=== PATIENT | female | born 1965 | race Caucasian/White ===

== ENCOUNTER 2017-12-28 18:21 | Inpatient (IN) | payer BC, OTHER ==
[~2017-12-28] VITALS: Ht 160 cm; Wt 64.2 kg
[2017-12-28] MEDS ORDERED: SODIUM CHLORIDE 0.9% 1000ML 1,000 ML IV ONE (19:00)
[2017-12-28] MEDS ORDERED: ACETAMINOPHEN IV 100 ML IV ONE (19:00)
[2017-12-28] MEDS ORDERED: OPTIRAY 320 IV PRN (19:15)
[2017-12-28 19:23] LABS: BASO % 0.1 %; BASO ABS # 0.01 K/uL (0-0.2); EOS % 5.1 %; EOS ABS # 0.51 K/uL (0-0.5); HEMATOCRIT 37.7 % (37-47); IG# 0.03 K/uL (0.00-0.02); LYMPH % 8.5 %; LYMPH ABS # 0.85 K/uL (1.2-3.4); MEAN CELL VOLUME 88.9 fL (80-100); MEAN CORPUSCULAR HEMOGLOBIN 30.7 pg (25-34); MEAN CORPUSCULAR HGB CONC 34.5 g/dl (32-36); MEAN PLATELET VOLUME 11.4 fL (7.4-10.4); MONO % 4.7 %; MONO ABS # 0.47 K/uL (0.11-0.59); NEUT % 81.3 %; NEUT ABS # 8.13 K/uL (1.4-6.5); PLATELET COUNT 208 K/uL (130-400); RED CELL DISTRIBUTION WIDTH SD 41.6 fL (36.4-46.3)
--- NOTE | 2017-12-28 19:28 | DIAGNOSTIC IMAGING REPORT ---
CHEST ONE VIEW PORTABLE CLINICAL HISTORY: Shortness of breath. Rib pain. COMPARISON STUDY: No previous studies for comparison. FINDINGS: Lung volumes are mildly diminished. There is mild left lower lung opacity. There may be a trace left pleural effusion. There is no pneumothorax or evidence for pulmonary edema. Cardiomediastinal silhouette is normal. IMPRESSION: 1. Mild left lower lung opacity which may reflect consolidation, atelectasis or a pulmonary infarct. Radiographic follow-up is recommended to ensure resolution. 2. Suspected trace left pleural effusion. 3. Diminished lung volumes. Electronically signed by: Juan Jose Wisdom M.D. 12/28/2017 7:27 PM Dictated Date/Time: 12/28/2017 7:25 PM
[2017-12-28 19:49] LABS: BLOOD UREA NITROGEN 20 mg/dl (7-18); CALCIUM 9.1 mg/dl (8.5-10.1); CARBON DIOXIDE 27 mmol/L (21-32); CREATININE 1.06 mg/dl (0.60-1.20); GLUCOSE 94 mg/dl (70-99); POTASSIUM 3.9 mmol/L (3.5-5.1); SODIUM 137 mmol/L (136-145)
[2017-12-28] MEDS ORDERED: ONDANSETRON INJ 2 MG/ML 2 ML VIAL IV STA (19:53)
[2017-12-28] MEDS ORDERED: MoRPHine SULFATE 4 MG/ML 1 ML CARP\\VIAL IV STA ×2 (19:53→20:55)
--- NOTE | 2017-12-28 20:33 | DIAGNOSTIC IMAGING REPORT ---
CT ANGIOGRAPHY OF THE CHEST, PULMONARY EMBOLUS PROTOCOL CLINICAL HISTORY: Severe shortness of breath. Left rib pain. COMPARISON STUDY: Chest radiograph performed earlier today. TECHNIQUE: Following IV administration of 113 mL of Optiray-320, helical axial images of the chest were obtained utilizing the pulmonary embolus protocol. Maximal intensity projections and sagittal and coronal reformats were viewed on an independent 3D workstation. IV contrast was administered without complication. A dose lowering technique was utilized adhering to the principles of ALARA. CT DOSE: 214.45 mGy.cm FINDINGS: No pulmonary emboli are identified although the segmental and subsegmental pulmonary arteries within the lower lobes are suboptimally assessed due to respiratory motion artifact. There is a small to moderate size focus of consolidation within the left lower lobe with minimal consolidation within the lingula and minimal tree-in-bud opacities within the right upper lobe. There is no cavitation. No pneumothorax or pleural effusion is noted. Central airways are patent. Size of the heart is normal. There is no thoracic aortic dissection. No pericardial effusion is present. There are several mildly enlarged prevascular lymph nodes which measure up to 1 cm in short axis diameter. Mild left hilar lymphadenopathy is noted. A left hilar node shown on image 187 of 296 measures 1.3 cm in short extremity. Bony thorax is unremarkable as is the upper abdomen. IMPRESSION: 1. No pulmonary emboli identified although segmental and subsegmental pulmonary arteries within the lower lobes suboptimally assessed due to respiratory motion artifact. 2. Zkqbr-gd-hlzcrqut focus of consolidation within the left lower lobe with minimal consolidation within the lingula and tree-in-bud opacity within the right upper lobe. The findings favor pneumonia. No cavitation. No pleural effusion. A follow-up chest CT in one month to ensure resolution is recommended. 3. Mild mediastinal and left hilar lymphadenopathy which is likely reactive. This can be assessed on subsequent CT to ensure resolution. Electronically signed by: Juan Jose Wisdom M.D. 12/28/2017 8:32 PM Dictated Date/Time: 12/28/2017 8:23 PM
[2017-12-28] MEDS ORDERED: PIPERACILLIN/TAZOBACTAM 4.5 GM/100ML D5W IV STA (20:55)
[2017-12-28] MEDS ORDERED: LEVAQUIN 750MG / 150ML D5W IV ONE (21:00)
[2017-12-28] MEDS ORDERED: ONDANSETRON INJ 2 MG/ML 2 ML VIAL IV PRN (21:15)
[2017-12-28] MEDS ORDERED: RIBO1TAB4 PO (21:22)
[2017-12-28] MEDS ORDERED: ESTR10TA PV (21:22)
[2017-12-28] MEDS ORDERED: PROB1TAB16 PO (21:22)
[2017-12-28] MEDS ORDERED: SUMA100T16 PO (21:22)
[2017-12-28] MEDS ORDERED: TRAM-10 PO (21:22)
[2017-12-28] MEDS ORDERED: GLC/500 PO (21:22)
[2017-12-28] MEDS ORDERED: BACL10TA PO (21:22)
[2017-12-28] MEDS ORDERED: LEVO112T4 PO (21:22)
[2017-12-28] MEDS ORDERED: TRAZ100T29 PO (21:22)
[2017-12-28] MEDS ORDERED: MAGN1CAP2 PO (21:22)
[2017-12-28] MEDS ORDERED: CLB/200 PO (21:22)
[2017-12-28] MEDS ORDERED: VERA120C2 PO (21:22)
[2017-12-28] MEDS ORDERED: CYM/30 PO (21:22)
[2017-12-28] MEDS ORDERED: MULT-506 PO (21:22)
[2017-12-28] MEDS ORDERED: MoRPHine SULFATE 2 MG/ML CARP IV PRN (21:30)
--- NOTE | 2017-12-28 21:37 | History and Physical ---
History & Physical Date & Time of Service: Dec 28, 2017 at 21:23 Chief Complaint: SOB Primary Care Physician: Reji Ge M.D. History of Present Illness Source: patient, family She is a 52-year-old female significant past medical history of fibromyalgia, ankylosing spondylitis, echo hypothyroidism, hypoglycemia and also a postconcussion syndrome and apparently has been complaining of left-sided chest pain with shortness of breath since this morning. She has had cough before for the last few days without any other associated symptoms. She denies to any fever or chills but feels cold. No abdominal pain nausea and/or vomiting. And she does not have any problem with urine and her bowel habit. She was noted to be hemodynamically stable in ER and a CT scan of the chest did show pneumonia involving the left lower lobe and no evidence of pulmonary embolism. She was started with intravenous Zosyn and Levaquin and was admitted to medical floor. Past Medical/Surgical History Medical Problems: (1) CAP (community acquired pneumonia) Past medical history Fibromyalgia Ankylosing spondylitis Tension headache with cervicalgia Acquired hypothyroidism Postconcussion syndrome Blepharospasm Past surgical history Hysterectomy Shoulder arthroscopy Tonsillectomy as a child Repair of nasal septum Social History Smoking Status: Never Smoker Smokeless Tobacco Use: No Alcohol Use: none Drug Use: none Marital Status: Housing status: lives with significant other Immunizations History of Influenza Vaccine: Yes History of Tetanus Vaccine?: Yes History of Pneumococcal: Yes History of Hepatitis B Vaccine: WITHIN PAST 10 YEARS Allergies Coded Allergies: Codeine (Verified Allergy, Unknown, 06/20/09) Tetracycline (Verified Allergy, Unknown, 06/20/09) Home Medications Scheduled Baclofen (Lioresal), 10 MG PO TID Celecoxib (CeleBREX), 200 MG PO DAILY Duloxetine HCl (Cymbalta), 30 MG PO DAILY Estradiol Vaginal (Vagifem), 1 TAB PV 2XWK Levothyroxine Sodium (Levothyroxine Sodium), 112 MCG PO DAILY Magnesium Oxide (Mg Supplement (Magnesium), 400 MG PO DAILY Metformin Hcl (Glucophage), 500 MG PO BIDM Multivitamin (Multivitamin), 1 TAB PO DAILY Probiotic Product (Probiotic), 1 TAB PO DAILY Riboflavin (Riboflavin), 400 MG PO DAILY Trazodone Hcl (Trazodone), 200 MG PO HS Verapamil Hcl (Verapamil Hcl Er), 120 MG PO DAILY Scheduled PRN Sumatriptan Succinate (Imitrex), 100 MG PO UD PRN for Migraine Tramadol (Ultram), 50-100 MG PO DAILY PRN for Pain Review of Systems Constitutional: + problem reported (cHILLS) Respiratory: + cough, + shortness of breath, + problem reported (Chest pain with Breathing) Abdomen: + nausea Musculoskeletal: + joint pain, + muscle pain Neurologic: + problem reported (Post Concussion syndrome) Physical Exam Vital Signs Date Time Temp Pulse Resp B/P (MAP) Pulse Ox O2 Delivery O2 Flow Rate FiO2 12/28/17 20:36 93 24 98 Nasal Cannula 2.0 12/28/17 20:32 115/93 12/28/17 20:01 125/88 12/28/17 19:40 83 22 100 Nasal Cannula 2.0 12/28/17 19:31 131/85 12/28/17 19:13 100 Nasal Cannula 2.0 12/28/17 19:10 91 34 100 Nasal Cannula 2.0 12/28/17 19:09 99 Nasal Cannula 2.0 12/28/17 19:06 99 Room Air 12/28/17 19:05 133/90 12/28/17 18:54 97 12/28/17 18:51 92 22 97 Room Air 12/28/17 18:31 148/100 12/28/17 18:24 37.0 99 26 124/78 96 Room Air General Appearance: + moderate distress Head: normocephalic Eyes: normal inspection ENT: normal ENT inspection Neck: supple Respiratory/Chest: chest non-tender, + respiratory distress, + decreased breath sounds, + crackles (left base ), + rhonchi Cardiovascular: regular rate, rhythm Abdomen/GI: normal bowel sounds Back: normal inspection Neurologic/Psych: alert, + aphasia (Abnormal speech), + motor weakness, + depressed affect, + pertinent finding (Abnormal movements of the limbs) Diagnostics Laboratory Results Results Past 24 Hours Test 12/28/17 19:05 Range/Units White Blood Count 10.00 4.8-10.8 K/uL Red Blood Count 4.24 4.2-5.4 M/uL Hemoglobin 13.0 12.0-16.0 g/dL Hematocrit 37.7 37-47 % Mean Corpuscular Volume 88.9 80-100 fL Mean Corpuscular Hemoglobin 30.7 25-34 pg Mean Corpuscular Hemoglobin Concent 34.5 32-36 g/dl Platelet Count 208 130-400 K/uL Mean Platelet Volume 11.4 7.4-10.4 fL Neutrophils (%) (Auto) 81.3 % Lymphocytes (%) (Auto) 8.5 % Monocytes (%) (Auto) 4.7 % Eosinophils (%) (Auto) 5.1 % Basophils (%) (Auto) 0.1 % Neutrophils # (Auto) 8.13 1.4-6.5 K/uL Lymphocytes # (Auto) 0.85 1.2-3.4 K/uL Monocytes # (Auto) 0.47 0.11-0.59 K/uL Eosinophils # (Auto) 0.51 0-0.5 K/uL Basophils # (Auto) 0.01 0-0.2 K/uL RDW Standard Deviation 41.6 36.4-46.3 fL RDW Coefficient of Variation 13.0 11.5-14.5 % Immature Granulocyte % (Auto) 0.3 % Immature Granulocyte # (Auto) 0.03 0.00-0.02 K/uL Sodium Level 137 136-145 mmol/L Potassium Level 3.9 3.5-5.1 mmol/L Chloride Level 103 98-107 mmol/L Carbon Dioxide Level 27 21-32 mmol/L Anion Gap 7.0 3-11 mmol/L Blood Urea Nitrogen 20 7-18 mg/dl Creatinine 1.06 0.60-1.20 mg/dl Estimated GFR () 68.9 Estimated GFR (Non- 59.5 BUN/Creatinine Ratio 18.7 10-20 Random Glucose 94 70-99 mg/dl Calcium Level 9.1 8.5-10.1 mg/dl Troponin I < 0.015 0-0.045 ng/ml Microbiology Results 12/28/17 Blood Culture, Ordered Pending 12/28/17 Blood Culture, Ordered Pending Diagnostic Radiology CTA-1. No pulmonary emboli identified although segmental and subsegmental pulmonary arteries within the lower lobes suboptimally assessed due to respiratory motion artifact. 2. Kepeh-vf-[id number] focus of consolidation within the left lower lobe with minimal consolidation within the lingula and tree-in-bud opacity within the right upper lobe. The findings favor pneumonia. No cavitation. No pleural effusion. A follow-up chest CT in one month to ensure resolution is recommended. 3. Mild mediastinal and left hilar lymphadenopathy which is likely reactive. This can be assessed on subsequent CT to ensure resolution. 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
[2017-12-28] MEDS: KETOROLAC TROMETHAMINE 15 MG/ML VIAL IV PRN (21:41)
[2017-12-28] MEDS ORDERED: TRAMADOL HCL 50 MG TAB PO PRN (21:45)
[2017-12-28] MEDS ORDERED: PATIENT'S HEIGHT AND/OR WEIGHT NEEDED SCH (22:15)
[2017-12-28 22:38] VITALS: BP 127/81; PULSE 74; TEMP 37.6; O2SAT 97; Ht 160 cm; Wt 64.2 kg
[2017-12-28 23:16] VITALS: BP 115/82; PULSE 76; TEMP 36.6; O2SAT 97
--- NOTE | 2017-12-29 00:43 | EMERGENCY ROOM VISIT NOTE ---
ED Visit Note First contact with patient: 18:40 Chief Complaint: Shortness of breath. History of Present Illness: Ms. Cohn is a 52-year-old white female who is brought into the ED via wheelchair complaining of shortness of breath. Historically patient does not have any significant related disease or surgeries. Patient reports she is had a very mild nonproductive cough over the last few days without any other associated symptoms. She reports that approximately 3 PM today, 5 hours ago, she was getting into her car, twisting around to get her seatbelt and had an acute snapping sensation in the posterior left ribs. This causes severe rib pain and shortness of breath since that time. She together describes her rib pain as a cramping/bandlike sensation around the left side of the chest sensation. She rates her discomfort 9/10. Her pain is nonradiating. Deep inspiration increases her discomfort. She has not identified any alleviating factors related to the pain. She has not taken any medications for her pain prior to arrival at the hospital. Associated with her pain she reports she has been short of breath and that she has been having some chills. She denies fevers, sweats, skin eruptions, skin color changes, headache, dizziness, lightheadedness, recent chest trauma, palpitations, claudication, cramping, recent surgery/inactivity/extended travel, abdominal pain, extremity pain, extremity swelling. Review of Systems: As noted above in history of present illness. All body systems were reviewed and found to be negative as noted above. Past Medical History: Hyperglycemia, Current Medications: Medications Dose Route/Sig Max Daily Dose Days Date Category Dose Instructions Probiotic (Probiotic Product) 1 Tab Tab 1 Tab PO DAILY 12/28/17 Reported Multivitamin (Multivitamins) Tab 1 Tab PO DAILY 12/28/17 Reported Riboflavin 400 Mg Tab 400 Mg PO DAILY 12/28/17 Reported Magnesium (Magnesium Oxide (Mg Supplement) 400 Mg Cap 400 Mg PO DAILY 12/28/17 Reported Levothyroxine Sodium 112 Mcg Tab 112 Mcg PO DAILY 12/28/17 Reported TAKE THIS MEDICATION 30 MINUTES BEFORE BREAKFAST OR ANY OTHER MEDICATIONS Glucophage (Metformin Hcl) 500 Mg Tab 500 Mg PO BIDM 12/28/17 Reported Trazodone (Trazodone HCl) 100 Mg Tab 200 Mg PO HS 12/28/17 Reported CeleBREX (Celecoxib) 200 Mg Cap 200 Mg PO DAILY 12/28/17 Reported Imitrex (Sumatriptan Succinate) 100 Mg Tab 100 Mg PO UD PRN 12/28/17 Reported TAKE ONE TABLET AT ONSET OF MIGRAINE, MAY REPEAT AFTER 2 HOURS IF NEEDED. TAKE NO MORE THAN 2 TABS IN 24 HOURS. Vagifem (Estradiol Vaginal) 10 Mcg Tab 1 Tab PV 2XWK 12/28/17 Reported Ultram (Tramadol HCl) 50 Mg Tab 50-100 Mg PO DAILY PRN 12/28/17 Reported Cymbalta (Duloxetine HCl) 30 Mg Cap 30 Mg PO DAILY 12/28/17 Reported Lioresal (Baclofen) 10 Mg Tab 10 Mg PO TID 12/28/17 Reported Verapamil Hcl Er (Verapamil Hcl) 120 Mg Cap 120 Mg PO DAILY 12/28/17 Reported Allergies to Medications: Doxycycline, codeine, gabapentin, tetracycline. Social History: Patient is not employed; she feels safe in her home environment ; she denies tobacco and alcohol use. Physical Examination: Vital Signs: Date Time Temp Pulse Resp B/P (MAP) Pulse Ox O2 Delivery O2 Flow Rate FiO2 12/28/17 21:11 83 23 97 Nasal Cannula 2.0 12/28/17 21:01 133/87 12/28/17 20:41 95 99 Nasal Cannula 2.0 12/28/17 20:36 93 24 98 Nasal Cannula 2.0 12/28/17 20:32 115/93 12/28/17 20:01 125/88 12/28/17 19:40 83 22 100 Nasal Cannula 2.0 12/28/17 19:31 131/85 12/28/17 19:13 100 Nasal Cannula 2.0 12/28/17 19:10 91 34 100 Nasal Cannula 2.0 12/28/17 19:09 99 Nasal Cannula 2.0 12/28/17 19:06 99 Room Air 12/28/17 19:05 133/90 12/28/17 18:54 97 12/28/17 18:51 92 22 97 Room Air 12/28/17 18:31 148/100 12/28/17 18:24 37.0 99 26 124/78 96 Room Air GENERAL: 52-year-old female in mild to moderate distress due to pain, nontoxic- appearing, afebrile and hemodynamically stable. NEUROLOGICAL: Awake, alert and oriented to person, place and time. Answering questions appropriately and following commands. Good hand eye coordination. No focal motor or sensory deficits. SKIN: Warm, dry and pink. No soft tissue eruptions or trauma noted. HEENT: Atraumatic and normocephalic. PERRLA. Sclera white and conjunctiva pink. No drainage from naris. Oral cavity moist and pink. Pharynx is nonerythematous or edematous. Airway is patent. Speech normal. No lymphadenopathy. Trachea midline. No jugular venous distention. No carotid bruits. BACK: No tenderness over the bony spine. No CVA tenderness. THORAX: Lungs sounds are clear to auscultation but significantly decreased over the left lateral lung bee. Equal bilaterally with symmetrical chest wall. No wheezing, rales or rhonchi. Mild to moderate tenderness over the posterior ribs just superior to the costal vertebral angle on the left. No tenderness, subcutaneous air or deformities noted. Patient's breathing pattern is irregular and intermittent she does gasp for respiration; when questioned she feels this is related to the pain. HEART: Regular rate and rhythm. No gallops, rubs or murmurs are appreciated. PMI was not displaced. No lifts, heaves or thrills. ABDOMEN: Flat, soft and nontender. Positive bowel sounds in all quadrants. No guarding, rigidity or organomegaly. EXTREMITIES: Moves all extremities well on command and with purpose. All distal neurovascular statuses are intact and equal bilaterally. No calf tenderness or cords. ED Course: Patient is assessed as noted above. Patient's medication list was reviewed. Laboratory Testing: Test 12/28/17 19:05 Range/Units White Blood Count 10.00 4.8-10.8 K/uL Red Blood Count 4.24 4.2-5.4 M/uL Hemoglobin 13.0 12.0-16.0 g/dL Hematocrit 37.7 37-47 % Mean Corpuscular Volume 88.9 80-100 fL Mean Corpuscular Hemoglobin 30.7 25-34 pg Mean Corpuscular Hemoglobin Concent 34.5 32-36 g/dl Platelet Count 208 130-400 K/uL Mean Platelet Volume 11.4 7.4-10.4 fL Neutrophils (%) (Auto) 81.3 % Lymphocytes (%) (Auto) 8.5 % Monocytes (%) (Auto) 4.7 % Eosinophils (%) (Auto) 5.1 % Basophils (%) (Auto) 0.1 % Neutrophils # (Auto) 8.13 1.4-6.5 K/uL Lymphocytes # (Auto) 0.85 1.2-3.4 K/uL Monocytes # (Auto) 0.47 0.11-0.59 K/uL Eosinophils # (Auto) 0.51 0-0.5 K/uL Basophils # (Auto) 0.01 0-0.2 K/uL RDW Standard Deviation 41.6 36.4-46.3 fL RDW Coefficient of Variation 13.0 11.5-14.5 % Immature Granulocyte % (Auto) 0.3 % Immature Granulocyte # (Auto) 0.03 0.00-0.02 K/uL Prothrombin Time 10.1 9.0-12.0 SECONDS Prothromb Time International Ratio 1.0 0.9-1.1 Sodium Level 137 136-145 mmol/L Potassium Level 3.9 3.5-5.1 mmol/L Chloride Level 103 98-107 mmol/L Carbon Dioxide Level 27 21-32 mmol/L Anion Gap 7.0 3-11 mmol/L Blood Urea Nitrogen 20 7-18 mg/dl Creatinine 1.06 0.60-1.20 mg/dl Estimated GFR () 68.9 Estimated GFR (Non- 59.5 BUN/Creatinine Ratio 18.7 10-20 Random Glucose 94 70-99 mg/dl Calcium Level 9.1 8.5-10.1 mg/dl Troponin I < 0.015 0-0.045 ng/ml Blood Culture, Pending. Chest X-Rays: Were read by myself and the radiologist showing mid left lower lung opacity which may reflect consolidation, atelectasis or pulmonary infarct. Suspected trace left pleural effusion. Diminished lung Chest CTA: Pulmonary emboli identified. Sxfiv-[id number] focus of consolidation within the left lower lung [id number] focus of consolidation within the left lower lobe; in favor of pneumonia. No cavitation , pleural effusion. Patient was reassessed multiple times during her stay in the emergency department. Patient was hydrated with normal saline and received thousand milligrams of Tylenol IV and a total of 8 mg of morphine IV for pain. Additionally she received 4 mg of Zofran IV. Additionally she received 750 mg of Levaquin IV and 4.5 g of Zosyn IV for her consolidation. Patient's case was reviewed with Dr. Jay; he independently assessed the patient we agreed on diagnostic approach, treatment, disposition and plan. Patient's case was consulted with case management and Dr. Hawkins, [facility], for medical observation/admission. Patient and were educated about today's findings. Clinical Impression: Community-acquired pneumonia. Left chest wall pain. Decision-Making: Initially my differential diagnosis I considered spontaneous pneumothorax, pulmonary embolism, rib fracture, kidney stone, pneumonia, thoracic aneurysm and other causes. Disposition and Plan: Patient was brought in the hospital for observation/ admission by the [facility] hospitalist; please see their notes and orders for final disposition and plan.
[2017-12-29] MEDS: LEVOTHYROXINE 112 MCG TAB PO SCH (06:20)
[2017-12-29] MEDS: ENOXAPARIN 40 MG/0.4 ML SYR SQ SCH (06:20)
[2017-12-29 07:04] LABS: HEMATOCRIT 35.6 % (37-47); MEAN CELL VOLUME 89.2 fL (80-100); MEAN CORPUSCULAR HEMOGLOBIN 30.1 pg (25-34); MEAN CORPUSCULAR HGB CONC 33.7 g/dl (32-36); MEAN PLATELET VOLUME 11.5 fL (7.4-10.4); PLATELET COUNT 190 K/uL (130-400); RED CELL DISTRIBUTION WIDTH CV 12.9 % (11.5-14.5); RED CELL DISTRIBUTION WIDTH SD 42.1 fL (36.4-46.3); WHITE BLOOD COUNT 7.83 K/uL (4.8-10.8)
[2017-12-29 07:19] VITALS: BP 111/68; PULSE 92; TEMP 37.6; O2SAT 92
[2017-12-29 07:42] LABS: CREATININE 1.09 mg/dl (0.60-1.20); POTASSIUM 3.7 mmol/L (3.5-5.1)
[2017-12-29] MEDS: VERAPAMIL HCL 120 MG TABCR PO SCH (08:38)
[2017-12-29] MEDS: MULTIVITAMIN TAB PO SCH (08:38)
[2017-12-29] MEDS: DULOXETINE (CYMBALTA) 30 MG CAP PO SCH (08:38)
[2017-12-29] MEDS: BACLOFEN 10 MG TAB PO SCH ×3 (08:38→20:39)
[2017-12-29] MEDS: KETOROLAC TROMETHAMINE 15 MG/ML VIAL IV PRN (08:38)
[2017-12-29] MEDS: MAGNESIUM OXIDE 400 MG TAB PO SCH (08:38)
[2017-12-29] MEDS: LACTOBACILLUS ACIDOPHILUS (FLORANEX) TAB PO SCH (08:38)
[2017-12-29] MEDS ORDERED: RIBOFLAVIN 400 MG PO SCH (09:00)
[2017-12-29] MEDS: SUMATRIPTAN SUCC TAB 100 MG TAB PO PRN ×2 (09:02→19:52)
--- NOTE | 2017-12-29 14:06 | Progress Note ---
Internal Med Progress Note Date of Service: Dec 29, 2017. Provider Documentation: SUBJECTIVE: Seen and examined at bedside Feels much better today Has some pleuritic chest pain Cough and SOB improving No other complaints OBJECTIVE: Vital Signs-as noted below Physical Exam: General Appearance:Moderately built and nourished, no apparent distress Head: normocephalic, Atraumatic Eyes: normal inspection, EOMI, PERRL Neck: supple, Trachea midline Respiratory/Chest: Normal breath sounds, CTA Cardiovascular: S1, S2, No murmur Abdomen/GI:Soft, Non tender, Bowel sounds present Extremities/Musculoskelatal:normal inspection, no edema Neurologic/Psych:AAOX3, grossly no focal neurological deficits Skin: normal color, warm Lab data as noted below. ASSESSMENT & PLAN: Community-acquired pneumonia CTA:No PE, findings suggestive of Pneumonia, Mild mediastinal and left hilar lymphadenopathy Blood Cultures pending Needs follow-up chest CT in one month to ensure resolution Continue Levaquin Monitor QTC, repeat EKG in AM Pleurisy 2/2 to above Toradol and Oxygen as needed H/O Ankylosing spondylitis H/O fibromyalgia Follows with [facility] Continue home medications Acquired hypothyroidism Continue Levothyroxine Postconcussion syndrome No acute symptoms Tension headache H/O Migraine Continue verapamil DVT Px: Lovenox SQ Code Status Full Code Disposition: Expect to discharge home when stable Vital Signs: Date Time Temp Pulse Resp B/P (MAP) Pulse Ox O2 Delivery O2 Flow Rate FiO2 12/29/17 08:00 Room Air 12/29/17 07:19 37.6 92 20 111/68 (82) 92 Room Air 12/29/17 00:10 Room Air 12/28/17 23:16 36.6 76 18 115/82 (93) 97 Room Air 12/28/17 22:38 37.6 74 20 127/81 97 Room Air 12/28/17 21:41 84 21 98 Nasal Cannula 2.0 12/28/17 21:35 126/79 12/28/17 21:11 83 23 97 Nasal Cannula 2.0 12/28/17 21:01 133/87 12/28/17 20:41 95 99 Nasal Cannula 2.0 12/28/17 20:36 93 24 98 Nasal Cannula 2.0 12/28/17 20:32 115/93 12/28/17 20:01 125/88 12/28/17 19:40 83 22 100 Nasal Cannula 2.0 12/28/17 19:31 131/85 12/28/17 19:13 100 Nasal Cannula 2.0 12/28/17 19:10 91 34 100 Nasal Cannula 2.0 12/28/17 19:09 99 Nasal Cannula 2.0 12/28/17 19:06 99 Room Air 12/28/17 19:05 133/90 12/28/17 18:54 97 12/28/17 18:51 92 22 97 Room Air 12/28/17 18:31 148/100 12/28/17 18:24 37.0 99 26 124/78 96 Room Air Lab Results: Results Past 24 Hours Test 12/28/17 19:05 12/28/17 22:35 12/29/17 06:41 Range/Units White Blood Count 10.00 7.83 4.8-10.8 K/uL Red Blood Count 4.24 3.99 4.2-5.4 M/uL Hemoglobin 13.0 12.0 12.0-16.0 g/dL Hematocrit 37.7 35.6 37-47 % Mean Corpuscular Volume 88.9 89.2 80-100 fL Mean Corpuscular Hemoglobin 30.7 30.1 25-34 pg Mean Corpuscular Hemoglobin Concent 34.5 33.7 32-36 g/dl Platelet Count 208 190 130-400 K/uL Mean Platelet Volume 11.4 11.5 7.4-10.4 fL Neutrophils (%) (Auto) 81.3 % Lymphocytes (%) (Auto) 8.5 % Monocytes (%) (Auto) 4.7 % Eosinophils (%) (Auto) 5.1 % Basophils (%) (Auto) 0.1 % Neutrophils # (Auto) 8.13 1.4-6.5 K/uL Lymphocytes # (Auto) 0.85 1.2-3.4 K/uL Monocytes # (Auto) 0.47 0.11-0.59 K/uL Eosinophils # (Auto) 0.51 0-0.5 K/uL Basophils # (Auto) 0.01 0-0.2 K/uL RDW Standard Deviation 41.6 42.1 36.4-46.3 fL RDW Coefficient of Variation 13.0 12.9 11.5-14.5 % Immature Granulocyte % (Auto) 0.3 % Immature Granulocyte # (Auto) 0.03 0.00-0.02 K/uL Prothrombin Time 10.1 9.0-12.0 SECONDS Prothromb Time International Ratio 1.0 0.9-1.1 Sodium Level 137 137 136-145 mmol/L Potassium Level 3.9 3.7 3.5-5.1 mmol/L Chloride Level 103 104 98-107 mmol/L Carbon Dioxide Level 27 27 21-32 mmol/L Anion Gap 7.0 6.0 3-11 mmol/L Blood Urea Nitrogen 20 16 7-18 mg/dl Creatinine 1.06 1.09 0.60-1.20 mg/dl Estimated GFR () 68.9 66.6 Estimated GFR (Non- 59.5 57.5 BUN/Creatinine Ratio 18.7 14.9 10-20 Random Glucose 94 100 70-99 mg/dl Calcium Level 9.1 8.0 8.5-10.1 mg/dl Troponin I < 0.015 0-0.045 ng/ml Urine Color YELLOW Urine Appearance CLEAR CLEAR Urine pH >= 9.0 4.5-7.5 Urine Specific [place] 1.045 1.000-1.030 Urine Protein NEG NEG Urine Glucose (UA) NEG NEG Urine Ketones NEG NEG Urine Occult Blood NEG NEG Urine Nitrite NEG NEG Urine Bilirubin NEG NEG Urine Urobilinogen NEG NEG Urine Leukocyte Esterase NEG NEG Est Creatinine Clear Calc Drug Dose 53.2 ml/min Phosphorus Level 3.0 2.5-4.9 mg/dl Magnesium Level 2.1 1.8-2.4 mg/dl Microbiology Results 12/28/17 Blood Culture, Received Pending 12/28/17 Blood Culture, Received Pending
[2017-12-29 14:50] VITALS: BP 109/68; PULSE 83; TEMP 37.2; O2SAT 96
[2017-12-29] MEDS ORDERED: LEVOFLOXACIN / D5W 750 MG in PREMIXED IN D5W 150 ML IV SCH (21:00)
[2017-12-29] MEDS ORDERED: TRAZODONE HCL 100 MG TAB PO SCH (21:00)
[2017-12-29 23:12] VITALS: BP 121/71; PULSE 65; TEMP 37.1; O2SAT 94
[2017-12-30] MEDS: LEVOTHYROXINE 112 MCG TAB PO SCH (05:55)
[2017-12-30] MEDS: ENOXAPARIN 40 MG/0.4 ML SYR SQ SCH (05:56)
[2017-12-30 06:48] LABS: HEMATOCRIT 37.1 % (37-47); HEMOGLOBIN 12.4 g/dL (12.0-16.0); MEAN CELL VOLUME 90.3 fL (80-100); MEAN CORPUSCULAR HEMOGLOBIN 30.2 pg (25-34); MEAN CORPUSCULAR HGB CONC 33.4 g/dl (32-36); MEAN PLATELET VOLUME 11.5 fL (7.4-10.4); PLATELET COUNT 201 K/uL (130-400); RED CELL DISTRIBUTION WIDTH CV 13.2 % (11.5-14.5); RED CELL DISTRIBUTION WIDTH SD 43.3 fL (36.4-46.3); WHITE BLOOD COUNT 6.06 K/uL (4.8-10.8)
[2017-12-30 07:15] VITALS: BP 128/75; PULSE 80; TEMP 37; O2SAT 94
[2017-12-30 07:37] LABS: CALCIUM 8.6 mg/dl (8.5-10.1); CREATININE 1.12 mg/dl (0.60-1.20); POTASSIUM 4.5 mmol/L (3.5-5.1)
[2017-12-30 09:10] VITALS: O2SAT 94
[2017-12-30] MEDS: SUMATRIPTAN SUCC TAB 100 MG TAB PO PRN (09:11)
[2017-12-30] MEDS: MAGNESIUM OXIDE 400 MG TAB PO SCH (09:12)
[2017-12-30] MEDS: BACLOFEN 10 MG TAB PO SCH ×2 (09:12→13:56)
[2017-12-30] MEDS: DULOXETINE (CYMBALTA) 30 MG CAP PO SCH (09:12)
[2017-12-30] MEDS: VERAPAMIL HCL 120 MG TABCR PO SCH (09:12)
[2017-12-30] MEDS: MULTIVITAMIN TAB PO SCH (09:12)
[2017-12-30] MEDS: LACTOBACILLUS ACIDOPHILUS (FLORANEX) TAB PO SCH (09:12)
--- NOTE | 2017-12-30 13:28 | Progress Note ---
Internal Med Progress Note Date of Service: Dec 30, 2017. Provider Documentation: SUBJECTIVE: Seen and examined at bedside Doing much better today Less Cough Denies chest pain, SOB States having toothbrush bristles stuck to back of throat earlier today which she removed No issues with swallowing, airway. On exam: could not see any foreign material OBJECTIVE: Vital Signs-as noted below Physical Exam: General Appearance:Moderately built and nourished, no apparent distress Head: normocephalic, Atraumatic Eyes: normal inspection, EOMI, PERRL Neck: supple, Trachea midline Respiratory/Chest: Normal breath sounds, CTA Cardiovascular: S1, S2, No murmur Abdomen/GI:Soft, Non tender, Bowel sounds present Extremities/Musculoskelatal:normal inspection, no edema Neurologic/Psych:AAOX3, grossly no focal neurological deficits Skin: normal color, warm Lab data as noted below. 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 Continue home medications Acquired hypothyroidism Continue Levothyroxine Postconcussion syndrome No acute symptoms Tension headache H/O Migraine Continue verapamil DVT Px: Lovenox SQ Code Status Full Code Disposition: Plan to discharge home today Follow up with your PCP on 01/03/18 at 11::AM Complete the antibiotic course as prescribed Get ENT evaluation as outpatient if your throat discomfort doesn't resolve Seek immediate medical attention if your symptoms reoccur or worsen Vital Signs: Date Time Temp Pulse Resp B/P (MAP) Pulse Ox O2 Delivery O2 Flow Rate FiO2 12/30/17 09:10 94 Room Air 12/30/17 07:15 37.0 80 18 128/75 (92) 94 Room Air 12/30/17 00:00 Room Air 12/29/17 23:12 37.1 65 16 121/71 (88) 94 Room Air 12/29/17 16:15 Room Air 12/29/17 14:50 37.2 83 18 109/68 (82) 96 Room Air Lab Results: Results Past 24 Hours Test 12/30/17 06:23 Range/Units White Blood Count 6.06 4.8-10.8 K/uL Red Blood Count 4.11 4.2-5.4 M/uL Hemoglobin 12.4 12.0-16.0 g/dL Hematocrit 37.1 37-47 % Mean Corpuscular Volume 90.3 80-100 fL Mean Corpuscular Hemoglobin 30.2 25-34 pg Mean Corpuscular Hemoglobin Concent 33.4 32-36 g/dl RDW Standard Deviation 43.3 36.4-46.3 fL RDW Coefficient of Variation 13.2 11.5-14.5 % Platelet Count 201 130-400 K/uL Mean Platelet Volume 11.5 7.4-10.4 fL Sodium Level 141 136-145 mmol/L Potassium Level 4.5 3.5-5.1 mmol/L Chloride Level 108 98-107 mmol/L Carbon Dioxide Level 27 21-32 mmol/L Anion Gap 6.0 3-11 mmol/L Blood Urea Nitrogen 15 7-18 mg/dl Creatinine 1.12 0.60-1.20 mg/dl Est Creatinine Clear Calc Drug Dose 51.8 ml/min Estimated GFR () 64.5 Estimated GFR (Non- 55.6 BUN/Creatinine Ratio 13.5 10-20 Random Glucose 95 70-99 mg/dl Calcium Level 8.6 8.5-10.1 mg/dl
[2017-12-30] MEDS ORDERED: LEVO1TAB35 PO (13:29)
--- NOTE | 2017-12-30 13:30 | Discharge Summary ---
Discharge Summary Date of Service Dec 30, 2017. Discharge Summary Admission Date: Dec 28, 2017 at 21:18 Discharge Date: Dec 30, 2017 Discharge Disposition: Home Principal Diagnosis: Pneumonia Procedures: CTA: 1. No pulmonary emboli identified although segmental and subsegmental pulmonary arteries within the lower lobes suboptimally assessed due to respiratory motion artifact. 2. [id number] focus of consolidation within the left lower lobe with minimal consolidation within the lingula and tree-in-bud opacity within the right upper lobe. The findings favor pneumonia. No cavitation. No pleural effusion. A follow-up chest CT in one month to ensure resolution is recommended. 3. Mild mediastinal and left hilar lymphadenopathy which is likely reactive. This can be assessed on subsequent CT to ensure resolution. Consultations: None Pending Studies/Follow-Up: Follow up with your PCP on 01/03/18 at 11::AM Complete the antibiotic course as prescribed Get ENT evaluation as outpatient if your throat discomfort doesn't resolve Seek immediate medical attention if your symptoms reoccur or worsen Medication Reconciliation New Medications: Levofloxacin (Levaquin) 750 Mg Tab 750 MG PO DAILY for 5 Days, #5 TAB Continued Medications: Baclofen (Lioresal) 10 Mg Tab 10 MG PO TID, TAB Celecoxib (CeleBREX) 200 Mg Cap 200 MG PO DAILY, CAP Duloxetine HCl (Cymbalta) 30 Mg Cap 30 MG PO DAILY, CAP Estradiol Vaginal (Vagifem) 10 Mcg Tab 1 TAB PV 2XWK, TAB Levothyroxine Sodium (Levothyroxine Sodium) 112 Mcg Tab 112 MCG PO DAILY, TAB TAKE THIS MEDICATION 30 MINUTES BEFORE BREAKFAST OR ANY OTHER MEDICATIONS Magnesium Oxide (Mg Supplement (Magnesium) 400 Mg Cap 400 MG PO DAILY Metformin Hcl (Glucophage) 500 Mg Tab 500 MG PO BIDM, TAB Multivitamin (Multivitamin) Tab 1 TAB PO DAILY, TAB Probiotic Product (Probiotic) 1 Tab Tab 1 TAB PO DAILY Riboflavin (Riboflavin) 400 Mg Tab 400 MG PO DAILY Sumatriptan Succinate (Imitrex) 100 Mg Tab 100 MG PO UD PRN for Migraine, TAB TAKE ONE TABLET AT ONSET OF MIGRAINE, MAY REPEAT AFTER 2 HOURS IF NEEDED. TAKE NO MORE THAN 2 TABS IN 24 HOURS. Tramadol (Ultram) 50 Mg Tab 50-100 MG PO DAILY PRN for Pain, TAB Trazodone Hcl (Trazodone) 100 Mg Tab 200 MG PO HS, TAB Verapamil Hcl (Verapamil Hcl Er) 120 Mg Cap 120 MG PO DAILY Admission Information HPI (per Admitting provider): She is a 52-year-old female significant past medical history of fibromyalgia, ankylosing spondylitis, echo hypothyroidism, hypoglycemia and also a postconcussion syndrome and apparently has been complaining of left-sided chest pain with shortness of breath since this morning. She has had cough before for the last few days without any other associated symptoms. She denies to any fever or chills but feels cold. No abdominal pain nausea and/or vomiting. And she does not have any problem with urine and her bowel habit. She was noted to be hemodynamically stable in ER and a CT scan of the chest did show pneumonia involving the left lower lobe and no evidence of pulmonary embolism. She was started with intravenous Zosyn and Levaquin and was admitted to medical floor. Physical Exam (per Admitting): General Appearance: + moderate distress Head: normocephalic Eyes: normal inspection ENT: normal ENT inspection Neck: supple Respiratory/Chest: chest non-tender, + respiratory distress, + decreased breath sounds, + crackles (left base ), + rhonchi Cardiovascular: regular rate, rhythm Abdomen/GI: normal bowel sounds Back: normal inspection Neurologic/Psych: alert, + aphasia (Abnormal speech), + motor weakness, + depressed affect, + pertinent finding (Abnormal movements of the limbs) Hospital Course Community-acquired pneumonia CTA:No PE, findings suggestive of Pneumonia, Mild mediastinal and left hilar lymphadenopathy Blood Cultures: No growth to date Needs follow-up chest CT in one month to ensure resolution Continue Levaquin Pleurisy 2/2 to above Resolved Toradol and Oxygen as needed H/O Ankylosing spondylitis H/O fibromyalgia 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 Continue home medications Acquired hypothyroidism Continue Levothyroxine Postconcussion syndrome No acute symptoms Tension headache H/O Migraine Continue verapamil DVT Px: Lovenox SQ Code Status Full Code Disposition: Plan to discharge home today Follow up with your PCP on 01/03/18 at 11::AM Complete the antibiotic course as prescribed Get ENT evaluation as outpatient if your throat discomfort doesn't resolve Seek immediate medical attention if your symptoms reoccur or worsen Total time spent on discharge = 35 minutes This includes examination of the patient, discharge planning, medication reconciliation, and communication with other providers. Discharge Instructions Discharge Instructions Date of Service Dec 30, 2017. Admission Reason for Admission: Cap (Community Acquired Pneumonia) Discharge Discharge Diagnosis / Problem: Pneumonia Discharge Goals Goal(s): Decrease discomfort, Improve function Activity Recommendations Activity Limitations: resume your previous activity Exercise/Sports Limitations: as tolerated . Instructions / Follow-Up Instructions / Follow-Up Follow up with your PCP on 01/03/18 at 11::AM Complete the antibiotic course as prescribed Get ENT evaluation as outpatient if your throat discomfort doesn't resolve Seek immediate medical attention if your symptoms reoccur or worsen Current Hospital Diet Patient's current hospital diet: AHA Diet (Heart Healthy) Discharge Diet Recommended Diet: AHA Diet (Heart Healthy) Pending Studies Studies pending at discharge: no Medical Emergencies . Who to Call and When: Medical Emergencies: If at any time you feel your situation is an emergency, please call 911 immediately. . Non-Emergent Contact Non-Emergency issues call your: Primary Care Provider Call Non-Emergent contact if: you have a fever, your pain is not controlled, your pain is worsening, your pain is unusual for you, your pain is concerning you, you have any medication questions Seek immediate medical attention if your symptoms reoccur or worsen . . "Provider Documentation" section prepared by Jorge Chew. . <Electronically signed by Jorge Chew MD> Signed: 12/30/17 [id number] Signed: The status of this report is Signed * If report status is Draft, the document has not been finalized by the responsible provider.
[2017-12-30 13:31] VITALS: BP 128/75; PULSE 80; TEMP 37; O2SAT 94
== END 2017-12-30 14:42 | disposition home or self-care (01) | DRG 195 ==
LOC: C.EDB 18:22 → C.MS2W 21:18 → ENRESERV 21:31
PROVIDERS: ADMIT Internal Medicine; ATTEND Internal Medicine
DX: J18.1 Lobar pneumonia, unspecified organism (principal); R09.1 Pleurisy; M79.7 Fibromyalgia; M45.9 Ankylosing spondylitis of unspecified sites in spine; E03.9 Hypothyroidism, unspecified; F07.81 Postconcussional syndrome; G44.209 Tension-type headache, unspecified, not intractable; Z79.890 Hormone replacement therapy; Z79.899 Other long term (current) drug therapy; Z88.1 Allergy status to other antibiotic agents; Z88.5 Allergy status to narcotic agent